=== PATIENT | female | born 1980 | race African-American/Black ===

== ENCOUNTER 2017-05-03 11:48 | Emergency (ER) | payer SELFPAY ==
[~2017-05-03] VITALS: Ht 152.4 cm; Wt 49.9 kg
[~2017-05-03 11:48] MED LIST: ADVAIR IH; ALBUTEROL0.09 MG/A1 IH; ALBUTEROL0.83 MG/ML IH; PREDNISONE 5MG5 MG PO; ZITHROMAX TRI-500 MG PO
[2017-05-03 12:01] VITALS: BP 112/72; PULSE 82; TEMP 98.5
[2017-05-03] MEDS ORDERED: RISPERDAL 0.20.25 MG PO (13:25)
[2017-05-03] MEDS ORDERED: MIRTAZAPINE7.5 MG PO (13:25)
[2017-05-03 14:10] LABS: BASO % 0.3 % (0.0-2.0); EOS # 0.3 (0.0-0.7); EOS % 2.9 % (0-4.0); GRAN # 5.7 (1.4-6.5); GRAN % 66.3 % (42.2-75.2); HEMATOCRIT 38.2 % (37.0-47.0); LYMPH # 2.2 (1.2-3.4); LYMPH % 25.4 % (20.0-51.0); MEAN CELL VOLUME 73 fl (80.0-100.0); MEAN CORPUSCULAR HEMOGLOBIN 23 pg (27.0-31.0); MEAN CORPUSCULAR HGB CONC 31 g/dl (33.0-37.0); MEAN PLATELET VOLUME 11.2 fl (7.4-10.4); MONO # 0.4 (0.1-0.6); PLATELET COUNT 237 K/mm3 (130-400); RED BLOOD COUNT 5.21 M/mm3 (4.10-5.30); REDCELL DISTRIBUTION WIDTH-CV 15.7 % (11.5-14.5)
[2017-05-03 14:21] LABS: ALBUMIN 4.4 gm/dL (3.5-5.0); BILIRUBIN,TOTAL 0.2 mg/dL (0.0-1.0); CALCIUM 9.4 mg/dL (8.4-10.2); CREATININE, serum 0.76 mg/dL (0.52-1.25); POTASSIUM 3.9 mmol/L (3.4-5.0)
[2017-05-03 14:43] LABS: COLLECTION METHOD CLEAN CATCH
[2017-05-03 15:08] LABS: MUCOUS Present /lpf; PH 5 (5-8); SQUAMOUS EPITHELIAL 20-50 /hpf; URINE APPEARANCE Cloudy; URINE BACTERIA Rare /hpf; URINE BILIRUBIN Negative (NEGATIVE); URINE BLOOD 1+ (NEGATIVE); URINE COLOR Yellow; URINE GLUCOSE Negative (NEGATIVE); URINE KETONE Negative (NEGATIVE); URINE LEUKOCYTE ESTERASE 3+ (NEGATIVE); URINE NITRATE Negative (NEGATIVE); URINE PROTEIN(semi-quant) Negative (NEGATIVE); URINE UROBILINOGEN Negative (NEGATIVE)
[2017-05-03] MEDS ORDERED: MACROBID 1100 MG/CAP PO (15:12)
== END 2017-05-03 14:55 | disposition home or self-care (01) ==
LOC: COL.ER 11:48
PROVIDERS: Nurse Practitioner Primary Care
DX: S39.011A Strain of muscle, fascia and tendon of abdomen, initial encounter (principal); N39.0 Urinary tract infection, site not specified; F31.9 Bipolar disorder, unspecified; G47.00 Insomnia, unspecified; F43.10 Post-traumatic stress disorder, unspecified; F17.210 Nicotine dependence, cigarettes, uncomplicated; Z98.51 Tubal ligation status; Z98.890 Other specified postprocedural states; X50.0XXA Overexertion from strenuous movement or load, initial encounter
CPT/HCPCS: J1170

== ENCOUNTER 2017-11-27 18:00 | Emergency (ER) | payer SELFPAY ==
[~2017-11-27] VITALS: Ht 157.5 cm; Wt 46.8 kg
[~2017-11-27 18:00] MED LIST changes: +MACROBID 1100 MG/CAP PO; +MIRTAZAPINE7.5 MG PO; +RISPERDAL 0.20.25 MG PO
[2017-11-27 18:02] VITALS: BP 115/68; PULSE 83; TEMP 98
[2017-11-27] MEDS ORDERED: ZOLOFT 100MG100 MG PO (18:18)
[2017-11-27] MEDS ORDERED: RISPERDAL 0.20.25 MG PO (18:19)
[2017-11-27] MEDS ORDERED: DESYREL 50MG50 MG PO (18:19)
[2017-11-27] MEDS ORDERED: NORCO 325 MG-51 TAB PO (18:52)
== END 2017-11-27 19:03 | disposition home or self-care (01) ==
LOC: COL.ER 18:00
DX: S62.001A Unspecified fracture of navicular [scaphoid] bone of right wrist, initial encounter for closed fracture (principal); X50.0XXA Overexertion from strenuous movement or load, initial encounter; Y92.009 Unspecified place in unspecified non-institutional (private) residence as the place of occurrence of the external cause

== ENCOUNTER 2018-01-25 10:43 | Emergency (ER) | payer MEDICAID ==
[~2018-01-25] VITALS: Ht 157.5 cm; Wt 50.0 kg
[~2018-01-25 10:43] MED LIST changes: +DESYREL 50MG50 MG PO; +NORCO 325 MG-51 TAB PO; +ZOLOFT 100MG100 MG PO
[2018-01-25] MEDS ORDERED: ZITHROMAX Z PA250 MG PO (11:58)
[2018-01-25] MEDS ORDERED: PREDNISONE20 MG PO (11:58)
[2018-01-25] MEDS ORDERED: PROVENTIL0.09 MG/A1 IH (11:59)
[2018-01-25 12:10] VITALS: BP 96/76; PULSE 77; TEMP 97.9
== END 2018-01-25 12:12 | disposition home or self-care (01) ==
LOC: COL.ER 10:43
DX: J45.901 Unspecified asthma with (acute) exacerbation (principal); F43.10 Post-traumatic stress disorder, unspecified; F41.9 Anxiety disorder, unspecified; F32.9 Major depressive disorder, single episode, unspecified; F17.210 Nicotine dependence, cigarettes, uncomplicated; Z90.49 Acquired absence of other specified parts of digestive tract; Z98.51 Tubal ligation status; Z98.890 Other specified postprocedural states; Z87.59 Personal history of other complications of pregnancy, childbirth and the puerperium; Z86.2 Personal history of diseases of the blood and blood-forming organs and certain disorders involving the immune mechanism; Z79.52 Long term (current) use of systemic steroids
CPT/HCPCS: J7512

== ENCOUNTER 2018-03-06 11:57 | Emergency (ER) | payer MEDICAID ==
[~2018-03-06] VITALS: Ht 152.4 cm; Wt 48.5 kg
[~2018-03-06 11:57] MED LIST changes: +PREDNISONE20 MG PO; +PROVENTIL0.09 MG/A1 IH; +ZITHROMAX Z PA250 MG PO
[2018-03-06 12:04] VITALS: BP 109/62; TEMP 98.4
[2018-03-06 13:04] LABS: COLLECTION METHOD CLEAN CATCH
[2018-03-06 13:13] LABS: BASO % 0.3 % (0.0-2.0); EOS # 0.2 (0.0-0.7); EOS % 1.9 % (0-4.0); HEMATOCRIT 38.7 % (37.0-47.0); LYMPH # 1.7 (1.2-3.4); MEAN CELL VOLUME 75 fl (80.0-100.0); MEAN CORPUSCULAR HEMOGLOBIN 23 pg (27.0-31.0); MEAN CORPUSCULAR HGB CONC 31 g/dl (33.0-37.0); MEAN PLATELET VOLUME 11.4 fl (7.4-10.4); MONO # 0.4 (0.1-0.6); MONO % 4.5 % (1.7-9.3); PLATELET COUNT 197 K/mm3 (130-400); RED BLOOD COUNT 5.16 M/mm3 (4.10-5.30); REDCELL DISTRIBUTION WIDTH-CV 15.6 % (11.5-14.5)
[2018-03-06 13:16] LABS: MUCOUS Present /lpf; PH 5 (5-8); URINE APPEARANCE Hazy; URINE BACTERIA Rare /hpf; URINE BILIRUBIN Negative (NEGATIVE); URINE BLOOD Negative (NEGATIVE); URINE COLOR Yellow; URINE GLUCOSE Negative (NEGATIVE); URINE KETONE Negative (NEGATIVE); URINE LEUKOCYTE ESTERASE Negative (NEGATIVE); URINE NITRATE Negative (NEGATIVE); URINE PROTEIN(semi-quant) Negative (NEGATIVE); URINE RBC 0-2 /hpf; URINE UROBILINOGEN Negative (NEGATIVE)
[2018-03-06 13:22] LABS: ALANINE AMINOTRANSFERASE 28 U/L (9-52); ALBUMIN 3.8 gm/dL (3.5-5.0); ALKALINE PHOSPHATASE 55 U/L (50-136); ANION GAP 2 mmol/L (7-16); AST,SGOT 20 U/L (15-37); BILIRUBIN,TOTAL 0.3 mg/dL (0.0-1.0); BLOOD UREA NITROGEN 10 mg/dL (7-17); CARBON DIOXIDE 29 mmol/L (22-30); CHLORIDE 108 mmol/L (98-107); CREATININE, serum 0.83 mg/dL (0.52-1.25); GLUCOSE 85 mg/dL (74-106); POTASSIUM 4.2 mmol/L (3.4-5.0); SODIUM 139 mmol/L (137-145); TOTAL PROTEIN 6.5 gm/dL (6.4-8.2)
[2018-03-06 13:23] LABS: C-REACTIVE PROTEIN < 0.5 mg/dL (0.0-0.9)
[2018-03-06] MEDS ORDERED: ZOFRAN ODT4 MG PO (15:02)
[2018-03-06] MEDS ORDERED: NORCO 325 MG-51 TAB PO (15:02)
[2018-03-06 15:50] VITALS: PULSE 61
== END 2018-03-06 16:21 | disposition home or self-care (01) ==
LOC: COL.ER 11:57
PROVIDERS: Physician Assistant
DX: N83.202 Unspecified ovarian cyst, left side (principal); F17.210 Nicotine dependence, cigarettes, uncomplicated; Z98.51 Tubal ligation status; Z90.89 Acquired absence of other organs
CPT/HCPCS: J1885; J2405; J7030; Q9967

== ENCOUNTER → 2018-04-25 | Outpatient (CLI) | payer MEDICAID ==
[~2018-04-25] MED LIST changes: +ZOFRAN ODT4 MG PO
== END ==
LOC: COL.RAD 11:40
DX: R06.02 Shortness of breath (principal); R42 Dizziness and giddiness

== ENCOUNTER 2018-07-20 11:41 | Emergency (ER) | payer MEDICAID ==
[~2018-07-20] VITALS: Ht 154.9 cm; Wt 52.7 kg
[2018-07-20 11:49] VITALS: BP 105/69; TEMP 98
[2018-07-20] MEDS ORDERED: FIORINAL 325 MG1 CAP PO (14:22)
[2018-07-20 14:42] VITALS: PULSE 106
== END 2018-07-20 14:43 | disposition home or self-care (01) ==
LOC: COL.ER 11:41
DX: R51 Headache (principal); J45.909 Unspecified asthma, uncomplicated; F43.10 Post-traumatic stress disorder, unspecified; F41.9 Anxiety disorder, unspecified; F32.9 Major depressive disorder, single episode, unspecified; F17.210 Nicotine dependence, cigarettes, uncomplicated; Z98.51 Tubal ligation status; Z90.89 Acquired absence of other organs
CPT/HCPCS: J1885

== ENCOUNTER → 2018-08-03 | Outpatient (CLI) | payer MEDICAID ==
[~2018-08-03] MED LIST changes: +FIORINAL 325 MG1 CAP PO
== END ==
LOC: COL.PUL 08:00
DX: R06.02 Shortness of breath (principal); Z87.09 Personal history of other diseases of the respiratory system

== ENCOUNTER 2018-08-20 12:52 | Emergency (ER) | payer MEDICAID ==
[~2018-08-20] VITALS: Ht 157.5 cm; Wt 50.0 kg
[2018-08-20 13:09] VITALS: BP 116/67; PULSE 114; TEMP 97.4
[2018-08-20] MEDS ORDERED: ALBUTEROL0.83 MG/ML IH (13:14)
[2018-08-20] MEDS ORDERED: RT ADVAIR 528 DISKUS IH (13:14)
== END 2018-08-20 15:34 | disposition home or self-care (01) ==
LOC: COL.ER 12:52
DX: S90.121A Contusion of right lesser toe(s) without damage to nail, initial encounter (principal); F32.9 Major depressive disorder, single episode, unspecified; F41.9 Anxiety disorder, unspecified; G47.00 Insomnia, unspecified; J45.909 Unspecified asthma, uncomplicated; Z79.82 Long term (current) use of aspirin; F17.210 Nicotine dependence, cigarettes, uncomplicated; Z79.51 Long term (current) use of inhaled steroids; W22.8XXA Striking against or struck by other objects, initial encounter; Y92.009 Unspecified place in unspecified non-institutional (private) residence as the place of occurrence of the external cause

== ENCOUNTER 2018-09-12 10:57 | Emergency (ER) | payer MEDICAID ==
[~2018-09-12] VITALS: Ht 154.9 cm; Wt 49.1 kg
[~2018-09-12 10:57] MED LIST changes: +RT ADVAIR 528 DISKUS IH
[2018-09-12 10:59] VITALS: BP 129/80; TEMP 98.7
[2018-09-12 12:01] VITALS: PULSE 110
== END 2018-09-12 12:02 | disposition home or self-care (01) ==
LOC: COL.ER 10:57
DX: S90.31XA Contusion of right foot, initial encounter (principal); F17.210 Nicotine dependence, cigarettes, uncomplicated; W20.8XXA Other cause of strike by thrown, projected or falling object, initial encounter; Y92.009 Unspecified place in unspecified non-institutional (private) residence as the place of occurrence of the external cause

== ENCOUNTER 2018-09-21 07:15 | Emergency (ER) | payer MEDICAID ==
[~2018-09-21] VITALS: Ht 157.5 cm; Wt 44.0 kg
[2018-09-21 07:28] VITALS: BP 110/74; TEMP 98.4
[2018-09-21] MEDS ORDERED: AMOXICILLIN 8751 TAB PO (08:21)
[2018-09-21 08:41] VITALS: PULSE 100
== END 2018-09-21 08:43 | disposition home or self-care (01) ==
LOC: COL.ER 07:15
DX: S02.5XXA Fracture of tooth (traumatic), initial encounter for closed fracture (principal); J40 Bronchitis, not specified as acute or chronic; F43.10 Post-traumatic stress disorder, unspecified; F17.210 Nicotine dependence, cigarettes, uncomplicated; Z87.09 Personal history of other diseases of the respiratory system; Z98.51 Tubal ligation status; Z98.890 Other specified postprocedural states; Z90.49 Acquired absence of other specified parts of digestive tract; Z88.8 Allergy status to other drugs, medicaments and biological substances; Z79.82 Long term (current) use of aspirin; Z79.51 Long term (current) use of inhaled steroids; X58.XXXA Exposure to other specified factors, initial encounter

== ENCOUNTER 2018-10-17 23:06 | Emergency (ER) | payer MEDICAID ==
[~2018-10-17] VITALS: Ht 157.5 cm; Wt 46.7 kg
[~2018-10-17 23:06] MED LIST changes: +AMOXICILLIN 8751 TAB PO
[2018-10-17 23:22] VITALS: BP 107/71; TEMP 98
[2018-10-18 02:00] VITALS: PULSE 73
== END 2018-10-18 02:00 | disposition home or self-care (01) ==
LOC: COL.ER 23:06
DX: S60.212A Contusion of left wrist, initial encounter (principal); S50.11XA Contusion of right forearm, initial encounter; G43.909 Migraine, unspecified, not intractable, without status migrainosus; R40.2410 Glasgow coma scale score 13-15, unspecified time; J45.909 Unspecified asthma, uncomplicated; R56.9 Unspecified convulsions; F41.9 Anxiety disorder, unspecified; F32.9 Major depressive disorder, single episode, unspecified; F43.10 Post-traumatic stress disorder, unspecified; D57.1 Sickle-cell disease without crisis; F17.210 Nicotine dependence, cigarettes, uncomplicated; W01.0XXA Fall on same level from slipping, tripping and stumbling without subsequent striking against object, initial encounter
CPT/HCPCS: J1885

== ENCOUNTER 2019-02-19 14:34 | Emergency (ER) | payer MEDICAID ==
[~2019-02-19] VITALS: Ht 152.4 cm; Wt 47.7 kg
[2019-02-19 14:36] VITALS: TEMP 97
[2019-02-19 15:07] LABS: BASO % 0.4 % (0.0-2.0); EOS # 0.2 (0.0-0.7); EOS % 3.1 % (0-4.0); GRAN # 5.1 (1.4-6.5); GRAN % 66.4 % (42.2-75.2); HEMATOCRIT 37.8 % (37.0-47.0); HEMOGLOBIN 11.7 g/dl (12.5-16.0); LYMPH % 25.7 % (20.0-51.0); MEAN CELL VOLUME 75 fl (80.0-100.0); MEAN CORPUSCULAR HEMOGLOBIN 23 pg (27.0-31.0); MEAN CORPUSCULAR HGB CONC 31 g/dl (33.0-37.0); MEAN PLATELET VOLUME 10.5 fl (7.4-10.4); MONO # 0.3 (0.1-0.6); MONO % 4.3 % (1.7-9.3); PLATELET COUNT 228 K/mm3 (130-400); RED BLOOD COUNT 5.04 M/mm3 (4.10-5.30); REDCELL DISTRIBUTION WIDTH-CV 14.7 % (11.5-14.5)
[2019-02-19] MEDS ORDERED: TEGRETOL 1100 MG/TAB PO (15:16)
[2019-02-19] MEDS ORDERED: ZOLOFT 100MG100 MG PO (15:17)
[2019-02-19 15:20] LABS: ALANINE AMINOTRANSFERASE 18 U/L (9-52); ALBUMIN 3.8 gm/dL (3.5-5.0); ALKALINE PHOSPHATASE 66 U/L (50-136); ANION GAP 5 mmol/L (7-16); AST,SGOT 21 U/L (15-37); BILIRUBIN,TOTAL 0.2 mg/dL (0.0-1.0); BLOOD UREA NITROGEN 9 mg/dL (7-17); C-REACTIVE PROTEIN < 0.5 mg/dL (0.0-0.9); CARBON DIOXIDE 29 mmol/L (22-30); CHLORIDE 105 mmol/L (98-107); CREATININE, serum 0.69 (0.52-1.25); GLUCOSE 98 mg/dL (74-106); POTASSIUM 3.6 mmol/L (3.4-5.0); SODIUM 139 mmol/L (137-145); TOTAL PROTEIN 6.3 gm/dL (6.4-8.2)
[2019-02-19 15:43] LABS: TROPONIN-I < 0.012 ng/mL (0.000-0.035)
[2019-02-19 15:43] LABS: ACETAMINOPHEN < 10 ug/mL (10-30); ALCOHOL(ethanol),MEDICAL < 10 mg/dL; SALICYLATE < 1.0 mg/dL
[2019-02-19 15:50] LABS: CARBAMAZEPINE (TEGRETOL) < 3.0 ug/mL (4.0-12.0)
[2019-02-19 15:54] LABS: COLLECTION METHOD CLEAN CATCH
[2019-02-19 16:03] LABS: PH 7 (5-8); SQUAMOUS EPITHELIAL 0-2 /hpf; URINE APPEARANCE Clear; URINE BACTERIA Rare /hpf; URINE BILIRUBIN Negative (NEGATIVE); URINE BLOOD 3+ (NEGATIVE); URINE COLOR Straw; URINE GLUCOSE Negative (NEGATIVE); URINE KETONE Negative (NEGATIVE); URINE LEUKOCYTE ESTERASE Negative (NEGATIVE); URINE NITRATE Negative (NEGATIVE); URINE PROTEIN(semi-quant) Negative (NEGATIVE); URINE RBC 20-50 /hpf; URINE UROBILINOGEN Negative (NEGATIVE); URINE WBC 0-2 /hpf
[2019-02-19 16:33] LABS: TRICYCLIC ANTIDEPRESS URINE NEGATIVE
[2019-02-19] MEDS ORDERED: TEGRETOL 2200 MG/TA1 PO (18:02)
[2019-02-19 18:14] VITALS: BP 117/83; PULSE 89
== END 2019-02-19 18:14 | disposition home or self-care (01) ==
LOC: COL.ER 14:34
PROVIDERS: Emergency Medicine
DX: G40.909 Epilepsy, unspecified, not intractable, without status epilepticus (principal); F32.9 Major depressive disorder, single episode, unspecified; F17.210 Nicotine dependence, cigarettes, uncomplicated; F43.10 Post-traumatic stress disorder, unspecified; G43.909 Migraine, unspecified, not intractable, without status migrainosus; F41.9 Anxiety disorder, unspecified
CPT/HCPCS: J2060; J7030

== ENCOUNTER 2019-05-27 16:15 | Emergency (ER) | payer MEDICAID ==
[~2019-05-27] VITALS: Ht 157.5 cm; Wt 49.1 kg
[~2019-05-27 16:15] MED LIST changes: +TEGRETOL 1100 MG/TAB PO; +TEGRETOL 2200 MG/TA1 PO
[2019-05-27 16:22] VITALS: TEMP 98.7
[2019-05-27] MEDS ORDERED: NORCO 325 MG-51 TAB PO (18:24)
[2019-05-27 18:55] VITALS: BP 108/65; PULSE 82
== END 2019-05-27 18:55 | disposition home or self-care (01) ==
LOC: COL.ER 16:15
DX: H11.31 Conjunctival hemorrhage, right eye (principal); H21.01 Hyphema, right eye

== ENCOUNTER 2019-09-11 15:39 | Emergency (ER) | payer MEDICAID ==
[~2019-09-11] VITALS: Ht 157.5 cm; Wt 54.5 kg
[2019-09-11 15:45] VITALS: TEMP 98.1
[2019-09-11 16:24] LABS: BASO % 0.4 % (0.0-2.0); EOS # 0.3 (0.0-0.7); EOS % 3.6 % (0-4.0); GRAN # 5.4 (1.4-6.5); GRAN % 68.5 % (42.2-75.2); HEMATOCRIT 37.4 % (37.0-47.0); HEMOGLOBIN 11.5 g/dl (12.5-16.0); LYMPH # 1.7 (1.2-3.4); LYMPH % 21.4 % (20.0-51.0); MEAN CELL VOLUME 75 fl (80.0-100.0); MEAN CORPUSCULAR HEMOGLOBIN 23 pg (27.0-31.0); MEAN CORPUSCULAR HGB CONC 31 g/dl (33.0-37.0); MEAN PLATELET VOLUME 10.9 fl (7.4-10.4); MONO # 0.5 (0.1-0.6); PLATELET COUNT 237 K/mm3 (130-400); RED BLOOD COUNT 4.98 M/mm3 (4.10-5.30); REDCELL DISTRIBUTION WIDTH-CV 14.7 % (11.5-14.5)
[2019-09-11 16:34] LABS: ALANINE AMINOTRANSFERASE 16 U/L (4-34); ALBUMIN 3.7 gm/dL (3.5-5.0); ALKALINE PHOSPHATASE 67 U/L (50-136); ANION GAP 3 mmol/L (7-16); AST,SGOT 26 U/L (15-37); BILIRUBIN,TOTAL 0.3 mg/dL (0.0-1.0); BLOOD UREA NITROGEN 12 mg/dL (7-17); CARBON DIOXIDE 28 mmol/L (22-30); CHLORIDE 103 mmol/L (98-107); CREATININE, serum 0.72 (0.52-1.25); GLUCOSE 89 mg/dL (74-106); LIPASE 470 U/L (23-300); POTASSIUM 3.9 mmol/L (3.4-5.0); SODIUM 135 mmol/L (137-145); TOTAL PROTEIN 6.2 gm/dL (6.4-8.2)
[2019-09-11 16:50] LABS: PROLACTIN 17.5 ng/mL (3.0-18.6)
[2019-09-11 16:56] LABS: TROPONIN-I < 0.012 ng/mL (0.000-0.035)
[2019-09-11 18:31] VITALS: BP 123/95; PULSE 79
== END 2019-09-11 20:15 | disposition home or self-care (01) ==
LOC: COL.ER 15:39
PROVIDERS: Emergency Medicine
DX: R07.9 Chest pain, unspecified (principal); R56.9 Unspecified convulsions; F17.210 Nicotine dependence, cigarettes, uncomplicated; Z88.8 Allergy status to other drugs, medicaments and biological substances
CPT/HCPCS: J1885; J2060; J7030

== ENCOUNTER 2020-06-02 06:56 | Emergency (ER) | payer MEDICAID ==
[~2020-06-02] VITALS: Ht 157.5 cm; Wt 49.5 kg
[2020-06-02 07:14] VITALS: TEMP 97.9
[2020-06-02] MEDS ORDERED: PROAIR HFA0.09 MG/AC IH (07:59)
[2020-06-02] MEDS ORDERED: PREDNISONE20 MG PO (07:59)
[2020-06-02] MEDS ORDERED: TEGRETOL 1100 MG/TAB PO (08:01)
[2020-06-02 08:08] VITALS: BP 109/85; PULSE 95
== END 2020-06-02 08:10 | disposition home or self-care (01) ==
LOC: COL.ER 06:56
DX: J06.9 Acute upper respiratory infection, unspecified (principal); Z72.0 Tobacco use; G40.909 Epilepsy, unspecified, not intractable, without status epilepticus; Z20.822 Contact with and (suspected) exposure to COVID-19; Z90.89 Acquired absence of other organs; Z88.8 Allergy status to other drugs, medicaments and biological substances
CPT/HCPCS: J7512

== ENCOUNTER 2020-07-05 10:54 | Emergency (ER) | payer MEDICAID ==
[~2020-07-05 10:54] MED LIST changes: +PROAIR HFA0.09 MG/AC IH
[2020-07-05 11:05] VITALS: TEMP 99.6
[2020-07-05 11:57] LABS: ALBUMIN 4.3 gm/dL (3.5-5.0); BILIRUBIN,TOTAL 0.5 mg/dL (0.0-1.0); CALCIUM 9.3 mg/dL (8.4-10.2); CREATININE, serum 0.83 (0.52-1.25); POTASSIUM 4.1 mmol/L (3.4-5.0); TOTAL PROTEIN 7.6 gm/dL (6.4-8.2)
[2020-07-05 12:25] LABS: BASO % 0.4 % (0.0-2.0); EOS % 0.1 % (0-4.0); GRAN # 6.4 (1.4-6.5); GRAN % 81.4 % (42.2-75.2); HEMATOCRIT 40.9 % (37.0-47.0); HEMOGLOBIN 12.7 g/dl (12.5-16.0); LYMPH # 0.8 (1.2-3.4); LYMPH % 9.6 % (20.0-51.0); MEAN CELL VOLUME 73 fl (80.0-100.0); MEAN CORPUSCULAR HEMOGLOBIN 23 pg (27.0-31.0); MEAN CORPUSCULAR HGB CONC 31 g/dl (33.0-37.0); MEAN PLATELET VOLUME 11.1 fl (7.4-10.4); MONO # 0.6 (0.1-0.6); MONO % 8.2 % (1.7-9.3); PLATELET COUNT 256 K/mm3 (130-400); RED BLOOD COUNT 5.58 M/mm3 (4.10-5.30); REDCELL DISTRIBUTION WIDTH-CV 14.8 % (11.5-14.5)
[2020-07-05 13:20] LABS: COLLECTION METHOD CLEAN CATCH
[2020-07-05 13:32] LABS: MUCOUS Present /lpf; PH 6 (5-8); URINE APPEARANCE Cloudy; URINE BACTERIA Rare /hpf; URINE BILIRUBIN Negative (NEGATIVE); URINE BLOOD Negative (NEGATIVE); URINE COLOR Yellow; URINE GLUCOSE Negative (NEGATIVE); URINE KETONE 1+ (NEGATIVE); URINE LEUKOCYTE ESTERASE 2+ (NEGATIVE); URINE NITRATE Negative (NEGATIVE); URINE PROTEIN(semi-quant) 1+ (NEGATIVE); URINE UROBILINOGEN Negative (NEGATIVE)
[2020-07-05] MEDS ORDERED: BACTRIM DS 8001 TAB PO (13:43)
[2020-07-05 13:55] VITALS: BP 111/78; PULSE 86
== END 2020-07-05 13:55 | disposition home or self-care (01) ==
LOC: COL.ER 10:54
PROVIDERS: Physician Assistant
DX: N39.0 Urinary tract infection, site not specified (principal); J45.909 Unspecified asthma, uncomplicated; F17.210 Nicotine dependence, cigarettes, uncomplicated; Z20.822 Contact with and (suspected) exposure to COVID-19; Z88.8 Allergy status to other drugs, medicaments and biological substances; Z79.52 Long term (current) use of systemic steroids
CPT/HCPCS: J1885; J7030

== ENCOUNTER 2020-07-18 09:02 | Emergency (ER) | payer MEDICAID ==
[~2020-07-18] VITALS: Ht 162.6 cm; Wt 48.6 kg
[~2020-07-18 09:02] MED LIST changes: +BACTRIM DS 8001 TAB PO
[2020-07-18 09:15] VITALS: BP 119/83; PULSE 96
[2020-07-18 10:32] LABS: BASO % 0.5 % (0.0-2.0); EOS # 0.3 (0.0-0.7); EOS % 3.5 % (0-4.0); GRAN # 5.5 (1.4-6.5); GRAN % 66.8 % (42.2-75.2); LYMPH # 1.8 (1.2-3.4); LYMPH % 21.4 % (20.0-51.0); MEAN CELL VOLUME 72 fl (80.0-100.0); MEAN CORPUSCULAR HGB CONC 31 g/dl (33.0-37.0); MEAN PLATELET VOLUME 9.7 fl (7.4-10.4); MONO # 0.6 (0.1-0.6); MONO % 7.4 % (1.7-9.3); PLATELET COUNT 337 K/mm3 (130-400); RED BLOOD COUNT 4.46 M/mm3 (4.10-5.30); REDCELL DISTRIBUTION WIDTH-CV 14.4 % (11.5-14.5)
[2020-07-18 10:33] LABS: HEMATOCRIT 32.1 % (37.0-47.0); HEMOGLOBIN 9.8 g/dl (12.5-16.0); MEAN CORPUSCULAR HEMOGLOBIN 22 pg (27.0-31.0)
[2020-07-18 10:43] LABS: ALANINE AMINOTRANSFERASE 18 U/L (4-34); ALBUMIN 3.5 gm/dL (3.5-5.0); ALKALINE PHOSPHATASE 96 U/L (50-136); ANION GAP 5 mmol/L (7-16); AST,SGOT 28 U/L (15-37); BILIRUBIN,TOTAL 0.2 mg/dL (0.0-1.0); BLOOD UREA NITROGEN 11 mg/dL (7-17); CALCIUM 8.7 mg/dL (8.4-10.2); CARBON DIOXIDE 29 mmol/L (22-30); CHLORIDE 100 mmol/L (98-107); CREATININE, serum 0.85 (0.52-1.25); GLUCOSE 87 mg/dL (74-106); POTASSIUM 3.9 mmol/L (3.4-5.0); SODIUM 135 mmol/L (137-145); TOTAL PROTEIN 6.8 gm/dL (6.4-8.2)
[2020-07-18 10:55] LABS: TROPONIN-I < 0.012 ng/mL (0.000-0.035)
== END 2020-07-18 12:00 | disposition home or self-care (01) ==
LOC: COL.ER 09:02
PROVIDERS: Nurse Practitioner Primary Care
DX: S70.01XA Contusion of right hip, initial encounter (principal); R07.89 Other chest pain; F17.210 Nicotine dependence, cigarettes, uncomplicated; J45.909 Unspecified asthma, uncomplicated; G40.909 Epilepsy, unspecified, not intractable, without status epilepticus; Z88.8 Allergy status to other drugs, medicaments and biological substances; Z79.51 Long term (current) use of inhaled steroids; W10.8XXA Fall (on) (from) other stairs and steps, initial encounter
CPT/HCPCS: J1885; J2360

== ENCOUNTER 2020-07-24 02:33 | Emergency (ER) | payer MEDICAID ==
[~2020-07-24] VITALS: Ht 162.6 cm; Wt 61.4 kg
[2020-07-24 02:48] VITALS: TEMP 98.5
[2020-07-24] MEDS ORDERED: PREDNISONE20 MG PO (02:58)
[2020-07-24 03:14] VITALS: BP 128/70; PULSE 98
== END 2020-07-24 03:14 | disposition home or self-care (01) ==
LOC: COL.ER 02:33
DX: M25.542 Pain in joints of left hand (principal); M25.541 Pain in joints of right hand; F17.210 Nicotine dependence, cigarettes, uncomplicated; Z88.8 Allergy status to other drugs, medicaments and biological substances; Z79.52 Long term (current) use of systemic steroids
CPT/HCPCS: J7512

== ENCOUNTER 2020-09-27 18:05 | Emergency (ER) | payer MEDICAID ==
[~2020-09-27] VITALS: Ht 160 cm; Wt 50.0 kg
[2020-09-27 18:15] VITALS: TEMP 98
[2020-09-27 18:45] VITALS: BP 112/70; PULSE 68
== END 2020-09-27 18:45 | disposition home or self-care (01) ==
LOC: COL.ER 18:05
DX: S50.11XA Contusion of right forearm, initial encounter (principal); M25.541 Pain in joints of right hand; M25.542 Pain in joints of left hand; J45.909 Unspecified asthma, uncomplicated; F31.9 Bipolar disorder, unspecified; F17.210 Nicotine dependence, cigarettes, uncomplicated; Z79.51 Long term (current) use of inhaled steroids; Z79.899 Other long term (current) drug therapy; W22.8XXA Striking against or struck by other objects, initial encounter; Y92.810 Car as the place of occurrence of the external cause

== ENCOUNTER 2021-01-19 10:15 | Emergency (ER) | payer MEDICAID ==
[~2021-01-19] VITALS: Ht 157.5 cm; Wt 45.5 kg
[2021-01-19] MEDS ORDERED: PROAIR HFA0.09 MG/AC IH (13:46)
[2021-01-19] MEDS ORDERED: TEGRETOL 1100 MG/TAB PO (13:46)
[2021-01-19 14:09] VITALS: BP 96/65; PULSE 78; TEMP 98.5
== END 2021-01-19 14:15 | disposition home or self-care (01) ==
LOC: COL.ER 10:15
DX: J45.909 Unspecified asthma, uncomplicated (principal); G40.909 Epilepsy, unspecified, not intractable, without status epilepticus; Z79.52 Long term (current) use of systemic steroids; Z79.899 Other long term (current) drug therapy; Z20.822 Contact with and (suspected) exposure to COVID-19

== ENCOUNTER 2021-06-01 09:27 | Emergency (ER) | payer MEDICAID ==
[~2021-06-01] VITALS: Ht 160 cm; Wt 49.5 kg
[2021-06-01 09:39] VITALS: BP 119/86; TEMP 98
[2021-06-01 11:50] VITALS: PULSE 72
[2021-06-01] MEDS ORDERED: FLEXERIL 1010 MG/TAB PO (12:00)
== END 2021-06-01 11:50 | disposition home or self-care (01) ==
LOC: COL.ER 09:27
DX: U07.1 COVID-19 (principal); H61.22 Impacted cerumen, left ear; M62.838 Other muscle spasm; J45.909 Unspecified asthma, uncomplicated; F17.200 Nicotine dependence, unspecified, uncomplicated; Z79.899 Other long term (current) drug therapy

== ENCOUNTER 2021-07-02 22:09 | Emergency (ER) | payer MEDICAID ==
[~2021-07-02] VITALS: Ht 165.1 cm; Wt 50.0 kg
[~2021-07-02 22:09] MED LIST changes: +FLEXERIL 1010 MG/TAB PO
[2021-07-02] MEDS ORDERED: MOBIC 7.5MG7.5 MG PO (23:44)
[2021-07-02 23:55] VITALS: BP 111/57; PULSE 90; TEMP 98.5
== END 2021-07-02 23:55 | disposition home or self-care (01) ==
LOC: COL.ER 22:09
DX: S46.912A Strain of unspecified muscle, fascia and tendon at shoulder and upper arm level, left arm, initial encounter (principal); X58.XXXA Exposure to other specified factors, initial encounter

== ENCOUNTER 2022-01-12 09:04 | Emergency (ER) | payer MEDICAID ==
[~2022-01-12] VITALS: Ht 149.9 cm; Wt 48.2 kg
[~2022-01-12 09:04] MED LIST changes: +MOBIC 7.5MG7.5 MG PO
[2022-01-12 09:11] VITALS: TEMP 98.5
[2022-01-12 10:27] LABS: BASO % 0.5 % (0.0-2.0); EOS # 0.2 K/mm3 (0.0-0.7); EOS % 2.5 % (0.0-4.0); GRAN % 63.4 % (42.2-75.2); HEMOGLOBIN 11.3 g/dl (12.5-16.0); LYMPH # 1.8 K/mm3 (1.2-3.4); LYMPH % 27.7 % (20.0-51.0); MEAN CELL VOLUME 73 fl (80.0-100.0); MEAN CORPUSCULAR HEMOGLOBIN 23 pg (27-31); MEAN CORPUSCULAR HGB CONC 32 g/dl (33.0-37.0); MEAN PLATELET VOLUME 10.4 fl (7.4-10.4); MONO # 0.4 K/mm3 (0.1-0.6); MONO % 5.7 % (1.7-9.3); PLATELET COUNT 206 K/mm3 (130-400); RED BLOOD COUNT 4.87 M/mm3 (4.10-5.30); REDCELL DISTRIBUTION WIDTH-CV 14.6 % (11.5-14.5)
[2022-01-12 10:28] LABS: HEMATOCRIT 35.4 % (37.0-47.0)
[2022-01-12 10:31] LABS: ALANINE AMINOTRANSFERASE 16 U/L (0-55); ALBUMIN 3.9 gm/dL (3.5-5.0); ALKALINE PHOSPHATASE 68 U/L (40-150); ANION GAP 7 mmol/L (7-16); AST,SGOT 18 U/L (5-34); BILIRUBIN,TOTAL 0.3 mg/dL (0.2-1.2); BLOOD UREA NITROGEN 16 mg/dL (7-19); CARBON DIOXIDE 25 mmol/L (22-29); CHLORIDE 107 mmol/L (98-107); CREATININE, serum 0.82 mg/dL (0.57-1.11); GLUCOSE 117 mg/dL (70-99); POTASSIUM 3.7 mmol/L (3.5-4.5); SODIUM 139 mmol/L (136-145); TOTAL PROTEIN 6.2 gm/dL (6.2-8.1)
[2022-01-12 10:37] LABS: TROPONIN-I < 0.010 ng/mL (0.00-0.033)
[2022-01-12 13:14] VITALS: BP 112/81; PULSE 77
== END 2022-01-12 13:14 | disposition home or self-care (01) ==
LOC: COL.ER 09:04
PROVIDERS: Personal Emergency Response Attendant
DX: R07.89 Other chest pain (principal); M25.512 Pain in left shoulder; R20.2 Paresthesia of skin; F17.200 Nicotine dependence, unspecified, uncomplicated

== ENCOUNTER 2022-02-18 03:14 | Emergency (ER) | payer MEDICAID ==
[~2022-02-18] VITALS: Ht 157.5 cm; Wt 45.5 kg
[2022-02-18 03:25] VITALS: BP 123/88; TEMP 98
[2022-02-18] MEDS ORDERED: CEPHALEXIN500 M1 PO (03:40)
[2022-02-18 03:55] VITALS: PULSE 92
== END 2022-02-18 03:58 | disposition home or self-care (01) ==
LOC: COL.ER 03:14
DX: S10.96XA Insect bite of unspecified part of neck, initial encounter (principal); T78.40XA Allergy, unspecified, initial encounter; F17.210 Nicotine dependence, cigarettes, uncomplicated; Z88.8 Allergy status to other drugs, medicaments and biological substances; W57.XXXA Bitten or stung by nonvenomous insect and other nonvenomous arthropods, initial encounter

== ENCOUNTER 2022-05-21 04:24 | Emergency (ER) | payer MEDICAID ==
[~2022-05-21] VITALS: Ht 157.5 cm; Wt 48.6 kg
[~2022-05-21 04:24] MED LIST changes: +CEPHALEXIN500 M1 PO
[2022-05-21 04:33] VITALS: TEMP 97.5
[2022-05-21] MEDS ORDERED: FLEXERIL 1010 MG/TAB PO (05:32)
[2022-05-21] MEDS ORDERED: PREDNISONE50 MG PO (05:32)
[2022-05-21 05:36] VITALS: BP 124/78; PULSE 76
== END 2022-05-21 05:36 | disposition home or self-care (01) ==
LOC: COL.ER 04:24
DX: M54.12 Radiculopathy, cervical region (principal); M62.830 Muscle spasm of back; F17.210 Nicotine dependence, cigarettes, uncomplicated; Z28.310 Unvaccinated for COVID-19
CPT/HCPCS: J7512

== ENCOUNTER 2023-04-20 13:41 | Emergency (ER) | payer MEDICAID ==
[~2023-04-20] VITALS: Ht 157.5 cm; Wt 49.1 kg
[~2023-04-20 13:41] MED LIST changes: +PREDNISONE50 MG PO
[2023-04-20 13:45] VITALS: BP 91/68; TEMP 98.1
[2023-04-20 14:51] VITALS: PULSE 96
== END 2023-04-20 14:52 | disposition home or self-care (01) ==
LOC: COL.ER 13:41
DX: M25.522 Pain in left elbow (principal); M54.12 Radiculopathy, cervical region; F17.210 Nicotine dependence, cigarettes, uncomplicated; F17.290 Nicotine dependence, other tobacco product, uncomplicated

== ENCOUNTER 2023-08-04 10:37 | Emergency (ER) | payer MEDICAID ==
[~2023-08-04] VITALS: Ht 149.9 cm; Wt 52.7 kg
[2023-08-04 10:38] VITALS: TEMP 97.9
[2023-08-04] MEDS ORDERED: NS 1,000 ML IV ONE (10:45)
[2023-08-04 10:56] LABS: BASO % 0.5 % (0.0-2.0); EOS # 0.3 K/mm3 (0.0-0.7); EOS % 3.3 % (0.0-4.0); GRAN # 5.4 K/mm3 (1.4-6.5); GRAN % 72.2 % (42.2-75.2); HEMATOCRIT 38.2 % (37.0-47.0); HEMOGLOBIN 11.9 g/dl (12.5-16.0); LYMPH # 1.4 K/mm3 (1.2-3.4); LYMPH % 18.6 % (20.0-51.0); MEAN CELL VOLUME 76 fl (80.0-100.0); MEAN CORPUSCULAR HEMOGLOBIN 24 pg (27-31); MEAN CORPUSCULAR HGB CONC 31 g/dl (33.0-37.0); MEAN PLATELET VOLUME 10.7 fl (7.4-10.4); MONO # 0.4 K/mm3 (0.1-0.6); MONO % 5.1 % (1.7-9.3); PLATELET COUNT 224 K/mm3 (130-400); RED BLOOD COUNT 5.05 M/mm3 (4.10-5.30); REDCELL DISTRIBUTION WIDTH-CV 14.6 % (11.5-14.5)
[2023-08-04 11:42] LABS: ALANINE AMINOTRANSFERASE 19 U/L (0-55); ALBUMIN 3.5 g/dL (3.5-5.0); ALKALINE PHOSPHATASE 62 U/L (40-150); ANION GAP 5 mmol/L (7-16); AST,SGOT 26 U/L (5-34); BILIRUBIN,TOTAL 0.3 mg/dL (0.2-1.2); BLOOD UREA NITROGEN 10 mg/dL (7-19); CALCIUM 8.8 mg/dL (8.4-10.2); CHLORIDE 110 mEq/L (98-107); CREATININE, serum 0.75 mg/dL (0.57-1.11); GLUCOSE 105 mg/dL (70-99); POTASSIUM 4.6 mEq/L (3.5-4.5); SODIUM 138 mEq/L (136-145); TOTAL PROTEIN 6.2 g/dl (6.2-8.1)
[2023-08-04 11:52] LABS: TROPONIN-I < 0.010 ng/mL (0.00-0.033)
[2023-08-04 12:17] VITALS: BP 130/92; PULSE 93
== END 2023-08-04 12:18 | disposition home or self-care (01) ==
LOC: COL.ER 10:37
PROVIDERS: Physician Assistant
DX: J40 Bronchitis, not specified as acute or chronic (principal)
CPT/HCPCS: J7030

== ENCOUNTER → 2023-08-11 | Outpatient (CLI) | payer MEDICAID | LOC: MHCPAIN 08:23 | DX: M47.812 Spondylosis without myelopathy or radiculopathy, cervical region (principal); M48.02 Spinal stenosis, cervical region | CPT/HCPCS: G0463 ==